=== PATIENT | male | born 1955 | race Caucasian/White ===

== ENCOUNTER 2018-05-02 14:39 | Inpatient (IN) | payer MEDICARE, MEDICAID ==
[~2018-05-02] VITALS: Ht 175.3 cm; Wt 65.8 kg
[2018-05-02 15:00] VITALS: BP 155/91
--- NOTE | 2018-05-02 15:00 | NUR ---
Admitted from [facility], for Cervical decompression, s/p fusion surgery. Awake, alert x4. With discomfort over back and bilateral shoulders. Cervical collar in place. Able to make needs known. On room air, no SOB or chest pains noted. Routine admission care done. Oriented patient of unit and equipment. Informed Dr. Blum of admission.
[2018-05-02] MEDS ORDERED: MAGNESIUM HYDROXIDE 30 ML LIQUID UDC PO PRN (16:00)
[2018-05-02] MEDS ORDERED: Z GUARD REMEDY PASTE 57 GM TUBE TOP PRN (16:00)
[2018-05-02] MEDS ORDERED: ACET-73 PO (16:05)
[2018-05-02] MEDS ORDERED: AMLO10TA4 PO (16:05)
[2018-05-02] MEDS ORDERED: VALS160T2 PO (16:05)
[2018-05-02] MEDS ORDERED: SULF500T3 PO (16:05)
[2018-05-02] MEDS ORDERED: TAMS0.4C34 PO (16:05)
[2018-05-02] MEDS ORDERED: CLON1PAT TD (16:05)
[2018-05-02] MEDS ORDERED: HYDR200T4 PO (16:05)
[2018-05-02] MEDS ORDERED: GABA-534 PO (16:05)
[2018-05-02] MEDS ORDERED: FLUT200B IH (16:05)
[2018-05-02] MEDS ORDERED: HYDR-3326 PO (16:05)
[2018-05-02] MEDS ORDERED: UMEC1BLS IH (16:05)
[2018-05-02] MEDS ORDERED: DIAZ5TAB4 PO (16:05)
[2018-05-02 16:08] VITALS: BP 153/88
[2018-05-02] MEDS ORDERED: ACETAMINOPHEN ES 500 MG TABLET PO PRN (18:30)
[2018-05-02] MEDS ORDERED: HOME MED MISCELLANEOUS XX SCH ×2 (18:30)
[2018-05-02] MEDS ORDERED: DIAZEPAM 5 MG TABLET PO PRN (18:30)
--- NOTE | 2018-05-02 18:40 | NUR ---
Medication reconciliation done by Dr Claus Serrato on 05/02/18 at 18:25
--- NOTE | 2018-05-02 18:40 | NUR ---
Home medications retained by Dr. laura Au being recalled. Endorsed to be followed up by pharmacy
[2018-05-02 20:29] VITALS: BP 161/95
[2018-05-02] MEDS: GABAPENTIN 300 MG CAPSULE PO SCH (20:31)
[2018-05-02] MEDS: HYDROCODONE/APAP 5-325MG TABLET PO PRN (20:34)
--- NOTE | 2018-05-02 22:02 | NUR ---
Pt. accucheck result @ this time is = 146 , pt. refused to receive his Regular S/S coverage since 146 is alright and good result already. No coverage given for Regular Insulin to the pt. Addendum: 05/03/18 at 0642 by LIBRA HERNANDEZ RN Pt. accucheck result @ this time is = 146 , pt. refused to receive his Regular S/S coverage since 146 is alright and good result already. No coverage given for Regular Insulin to the pt. THIS CHARTING IS ERROR. PLEASE DISREGARD THIS CHARTING.
[2018-05-03] MEDS: HYDROCODONE/APAP 5-325MG TABLET PO PRN ×5 (03:07→23:13)
[2018-05-03 05:00] VITALS: BP 146/84
[2018-05-03] MEDS: UMECLIDINIUM IH SCH (08:28)
[2018-05-03] MEDS: ARNUITY ELLIPTA 200 MCG INH SCH (08:28)
[2018-05-03] MEDS: VILANTEROL IH SCH (08:28)
[2018-05-03] MEDS: [UNRECOGNIZED DRUG - OTHER] IH SCH (08:28)
[2018-05-03] MEDS: TAMSULOSIN HCL 0.4 MG CAP.SR.24H PO SCH (08:28)
[2018-05-03] MEDS: LOSARTAN POTASSIUM 50 MG TABLET PO SCH (08:32)
[2018-05-03] MEDS: AMLODIPINE 10 MG TABLET PO SCH (08:32)
[2018-05-03] MEDS ORDERED: CLONIDINE-TTS 1 PATCH TD SCH (09:00)
[2018-05-03] MEDS ORDERED: VALSARTAN 160 MG TABLET PO SCH (09:00)
[2018-05-03] MEDS: HYDROXYCHLOROQUINE SULFATE 200 MG TABLET PO SCH ×2 (09:32→17:06)
[2018-05-03] MEDS: SULFASALAZINE 500 MG TABLET PO SCH ×2 (09:32→17:06)
[2018-05-03 15:49] VITALS: BP 142/86
--- NOTE | 2018-05-03 19:30 | NUR ---
PT ALERT AND ORIENTED IN BED. NO DISTRESS NOTED. COMPLIANT WITH NURSING CARE. WILL GIVE PAIN MEDICATION ORDERED. NECK BRACE IN PLACE. SAFETY MAINTAINED. CALL LIGHT WITHIN REACH. BED ALARM ON.
[2018-05-03 19:39] VITALS: BP 153/89
[2018-05-03] MEDS: GABAPENTIN 300 MG CAPSULE PO SCH (20:08)
[2018-05-04] MEDS: HYDROCODONE/APAP 5-325MG TABLET PO PRN ×3 (03:40→12:10)
[2018-05-04 05:30] VITALS: BP 144/84
[2018-05-04] MEDS: VILANTEROL IH SCH (06:04)
[2018-05-04] MEDS: [UNRECOGNIZED DRUG - OTHER] IH SCH (06:04)
[2018-05-04] MEDS: UMECLIDINIUM IH SCH (06:04)
[2018-05-04] MEDS: ARNUITY ELLIPTA 200 MCG INH SCH (06:04)
--- NOTE | 2018-05-04 06:43 | NUR ---
PT ALERT AND ORIENTED IN BED. NO DISTRESS NOTED. COMPLIANT WITH MEDICATIONS AND NURSING CARE. PAIN MEDICATION THROUGHOUT THE NIGHT NEEDED FOR PAIN. CERVICAL BRACE IN PLACE, DRESSINGS REINFORCED. SAFETY MAINTAINED. CALL LIGHT WITHIN REACH. BED ALARM ON.
[2018-05-04] MEDS: SULFASALAZINE 500 MG TABLET PO SCH ×2 (07:44→17:30)
[2018-05-04] MEDS: HYDROXYCHLOROQUINE SULFATE 200 MG TABLET PO SCH ×2 (07:44→17:31)
[2018-05-04] MEDS: LOSARTAN POTASSIUM 50 MG TABLET PO SCH (07:44)
[2018-05-04] MEDS: AMLODIPINE 10 MG TABLET PO SCH (07:45)
[2018-05-04] MEDS: OXYCODONE HCL 10 MG TAB.SR.12H PO SCH ×2 (07:46→21:45)
[2018-05-04] MEDS: TAMSULOSIN HCL 0.4 MG CAP.SR.24H PO SCH (07:46)
[2018-05-04 08:00] VITALS: BP 175/98
--- NOTE | 2018-05-04 08:00 | NUR ---
OT WORKING WITH PATIENT. HELPED SHOWER PATIENT. DRESSING CHANGED POST SHOWER. CLEANED WITH CHLORAPREP AND APPLIED NEW SURGICAL DRESSING. SURGICAL SITE KEELEY ARE CLEAN DRY INTACT NO DRAINAGE OR SWELLING NOTED.
--- NOTE | 2018-05-04 14:30 | NUR ---
endorsed patients to charge nurse
--- NOTE | 2018-05-04 14:40 | NUR ---
Received patient in bed, awake, verbally responsive, not in any form of acute distress. He denies any pain or discomfort at this time. Call light placed within reach.
[2018-05-04 16:01] VITALS: BP 170/99
[2018-05-04 20:14] VITALS: BP 147/90
--- NOTE | 2018-05-04 20:30 | NUR ---
Lying in bed wearing his cervical collar A/O x4 Surg Dressing C/D/I stables intact. denies of any distress siderails up call light within reach.
[2018-05-04] MEDS: GABAPENTIN 300 MG CAPSULE PO SCH (21:48)
[2018-05-05] MEDS: HYDROCODONE/APAP 5-325MG TABLET PO PRN ×2 (04:33→15:43)
--- NOTE | 2018-05-05 04:38 | NUR ---
C/o 7-10 Neck pain given 1 tab of norco.
[2018-05-05 05:00] VITALS: BP 137/90
[2018-05-05] MEDS: VILANTEROL IH SCH (06:40)
[2018-05-05] MEDS: UMECLIDINIUM IH SCH (06:40)
[2018-05-05] MEDS: ARNUITY ELLIPTA 200 MCG INH SCH (06:40)
[2018-05-05] MEDS: [UNRECOGNIZED DRUG - OTHER] IH SCH (06:40)
--- NOTE | 2018-05-05 06:57 | NUR ---
Lying in bed awake given inhalers denies of any distress c-collar remains on.
[2018-05-05] MEDS: SULFASALAZINE 500 MG TABLET PO SCH ×2 (09:55→17:21)
[2018-05-05] MEDS: AMLODIPINE 10 MG TABLET PO SCH (09:56)
[2018-05-05] MEDS: TAMSULOSIN HCL 0.4 MG CAP.SR.24H PO SCH (09:56)
[2018-05-05] MEDS: LOSARTAN POTASSIUM 50 MG TABLET PO SCH (09:56)
[2018-05-05] MEDS: OXYCODONE HCL 10 MG TAB.SR.12H PO SCH ×2 (09:57→20:12)
[2018-05-05] MEDS: HYDROXYCHLOROQUINE SULFATE 200 MG TABLET PO SCH ×2 (09:57→17:20)
--- NOTE | 2018-05-05 14:02 | NUR ---
INTERDISCIPLINARY TEAM CONFERENCE
[2018-05-05] MEDS: GABAPENTIN 300 MG CAPSULE PO SCH (20:12)
[2018-05-05 20:20] VITALS: BP 146/85
[2018-05-06 04:04] VITALS: BP 137/93
--- NOTE | 2018-05-06 05:58 | NUR ---
PT IN BED RESTING, CERVICAL COLLAR IN PLACE. IN NO ACUTE SIGNS OF DISTRESS. SAFETY MEASURES RENDERED.
[2018-05-06] MEDS: VILANTEROL IH SCH (06:37)
[2018-05-06] MEDS: [UNRECOGNIZED DRUG - OTHER] IH SCH (06:37)
[2018-05-06] MEDS: UMECLIDINIUM IH SCH (06:37)
[2018-05-06] MEDS: ARNUITY ELLIPTA 200 MCG INH SCH (06:38)
[2018-05-06] MEDS: SULFASALAZINE 500 MG TABLET PO SCH ×2 (08:24→17:02)
[2018-05-06] MEDS: HYDROXYCHLOROQUINE SULFATE 200 MG TABLET PO SCH ×2 (08:25→17:02)
[2018-05-06] MEDS: AMLODIPINE 10 MG TABLET PO SCH (08:25)
[2018-05-06] MEDS: OXYCODONE HCL 10 MG TAB.SR.12H PO SCH (08:25)
[2018-05-06] MEDS: TAMSULOSIN HCL 0.4 MG CAP.SR.24H PO SCH (08:27)
[2018-05-06] MEDS: LOSARTAN POTASSIUM 50 MG TABLET PO SCH (08:28)
[2018-05-06 15:50] VITALS: BP 148/87
[2018-05-06] MEDS: HYDROCODONE/APAP 5-325MG TABLET PO PRN (16:10)
== END 2018-05-06 17:45 | disposition home health service (06) | DRG 559 ==
PROVIDERS: ADMIT Physical Medicine & Rehabilitation Pain Medicine; ATTEND Physical Medicine & Rehabilitation Pain Medicine
DX: Z47.89 Encounter for other orthopedic aftercare (principal); E43 Unspecified severe protein-calorie malnutrition; M47.12 Other spondylosis with myelopathy, cervical region; M48.02 Spinal stenosis, cervical region; M54.12 Radiculopathy, cervical region; Z86.19 Personal history of other infectious and parasitic diseases; D64.9 Anemia, unspecified; G89.29 Other chronic pain; J44.9 Chronic obstructive pulmonary disease, unspecified; M06.9 Rheumatoid arthritis, unspecified; N40.0 Benign prostatic hyperplasia without lower urinary tract symptoms; R29.6 Repeated falls; R20.0 Anesthesia of skin; F12.90 Cannabis use, unspecified, uncomplicated; Z87.891 Personal history of nicotine dependence; F41.9 Anxiety disorder, unspecified; R26.9 Unspecified abnormalities of gait and mobility
CPT/HCPCS: 92523; 92526; 92610; 97110; 97112; 97116; 97165; 97530; 97535; A9150

== ENCOUNTER 2024-01-06 10:17 | Inpatient (IN) | payer MEDICARE, OTHER ==
[~2024-01-06] VITALS: Ht 185.4 cm; Wt 79.4 kg
[~2024-01-06 10:17] MED LIST: ACET-73 PO; AMLO10TA4 PO; CLON1PAT TD; DIAZ5TAB4 PO; FLUT200B IH; GABA-534 PO; HYDR-3326 PO; HYDR200T4 PO; SULF500T3 PO; TAMS0.4C34 PO; UMEC1BLS IH; VALS160T2 PO
[2024-01-06] MEDS ORDERED: HYDROMORPHONE 2 MG/1 ML DISP.SYRIN ONE ×3 (10:40→13:48)
[2024-01-06] MEDS ORDERED: ONDANSETRON 4 MG/2 ML VIAL ONE ×2 (10:40→11:18)
[2024-01-06] MEDS: ONDANSETRON 4 MG/2 ML VIAL IV ONE ×2 (10:46→11:26)
[2024-01-06] MEDS: HYDROMORPHONE 1 MG/1 ML DISP.SYRIN IV ONE ×2 (10:46→11:26)
[2024-01-06] MEDS ORDERED: ETAN50SY SQ (11:17)
[2024-01-06] MEDS ORDERED: LOSA1TAB39 PO (11:17)
[2024-01-06] MEDS ORDERED: ATOR40TA PO (11:17)
[2024-01-06] MEDS ORDERED: KETOROLAC TROMETHAMINE 15 MG INJ ONE (11:18)
[2024-01-06 11:19] LABS: BASOPHILS # (AUTO) 0.1 K/UL (0.0-0.2); EOSINOPHILS # (AUTO) 0.3 K/uL (0.0-0.7); EOSINOPHILS % (AUTO) 4.9 % (0.0-7.0); HEMATOCRIT 39.7 % (36.7-47.1); HEMOGLOBIN 13.6 g/dL (12.5-16.3); LYMPHOCYTES # (AUTO) 1.8 K/uL (0.8-4.8); LYMPHOCYTES % (AUTO) 26.2 % (20.5-51.5); MEAN CORPUSCULAR HGB CONC 34 g/dL (32.5-36.3); MEAN CORPUSCULAR VOLUME 84.4 fL (73.0-96.2); MONOCYTES # (AUTO) 0.8 K/uL (0.1-1.30); MONOCYTES % (AUTO) 11.3 % (0.0-11.0); NEUTROPHILS % (AUTO) 56.6 % (38.5-71.5); PLATELET COUNT (AUTO) 226 K/uL (152-348)
[2024-01-06 11:27] LABS: DIFFERENTIAL COMMENT 1
[2024-01-06] MEDS: KETOROLAC TROMETHAMINE 15 MG INJ IVP ONE (11:27)
[2024-01-06 11:29] LABS: CALCIUM 9.1 mg/dL (8.5-10.1); CREATININE 1.4 mg/dL (0.6-1.3)
[2024-01-06] MEDS: HYDROMORPHONE 1 MG/1 ML DISP.SYRIN IV PRN ×3 (13:55→20:47)
[2024-01-06] MEDS ORDERED: DIAZEPAM 5 MG TABLET PO PRN (14:45)
[2024-01-06] MEDS ORDERED: CLONIDINE-TTS 1 PATCH TD SCH (14:45)
[2024-01-06] MEDS ORDERED: MAGNESIUM HYDROXIDE 30 ML LIQUID UDC PO PRN (15:00)
[2024-01-06] MEDS ORDERED: ACETAMINOPHEN 325 MG TABLET PO PRN (15:00)
[2024-01-06] MEDS ORDERED: REMEDY ESSENTIAL ZINC PASTE 113 GM TP PRN (15:00)
[2024-01-06] MEDS ORDERED: HYDROXYCHLOROQUINE SULFATE 200 MG TABLET PO SCH (17:00)
[2024-01-06] MEDS ORDERED: SULFASALAZINE 1000 MG PO SCH (17:00)
[2024-01-06] MEDS: ONDANSETRON 4 MG/2 ML VIAL IV PRN (17:37)
[2024-01-06] MEDS: DEXAMETHASONE SOD PHOSPHATE 10 MG INJ IV SCH (20:27)
[2024-01-06] MEDS: DOCUSATE SODIUM 250 MG CAPSULE PO SCH (20:27)
[2024-01-06 20:31] VITALS: BP 139/70; TEMP 97.4; O2SAT 92
[2024-01-06] MEDS: ENOXAPARIN SODIUM 40 MG/0.4 ML DISP.SYRIN SQ SCH (21:22)
[2024-01-06] MEDS: AMLODIPINE 10 MG TABLET PO SCH (22:35)
[2024-01-06] MEDS: MONTELUKAST SODIUM 10 MG TABLET PO SCH (22:35)
[2024-01-07] MEDS: diphenhydrAMINE 25 MG CAP PO PRN (01:48)
[2024-01-07 02:20] VITALS: O2SAT 98
[2024-01-07 05:26] VITALS: BP 146/8; TEMP 98.5; O2SAT 92
[2024-01-07 06:32] LABS: BASOPHILS % (AUTO) 0.2 % (0.0-2.0); EOSINOPHILS % (AUTO) 0.1 % (0.0-7.0); HEMATOCRIT 35.2 % (36.7-47.1); HEMOGLOBIN 12.3 g/dL (12.5-16.3); LYMPHOCYTES # (AUTO) 0.5 K/uL (0.8-4.8); LYMPHOCYTES % (AUTO) 7.3 % (20.5-51.5); MEAN CORPUSCULAR HEMOGLOBIN 29.3 uug (23.8-33.4); MEAN CORPUSCULAR HGB CONC 35 g/dL (32.5-36.3); MEAN CORPUSCULAR VOLUME 83.8 fL (73.0-96.2); MONOCYTES # (AUTO) 0.2 K/uL (0.1-1.30); MONOCYTES % (AUTO) 2.9 % (0.0-11.0); NEUTROPHILS # (AUTO) 6.3 K/uL (1.8-8.9); NEUTROPHILS % (AUTO) 89.5 % (38.5-71.5); PLATELET COUNT (AUTO) 210 K/uL (152-348); RED BLOOD CELL COUNT(AUTO) 4.21 MIL/uL (4.06-5.63); RED CELL DISTRIBUTION WIDTH 14.6 % (12.1-16.2); WHITE BLOOD COUNT (AUTO) 7.1 K/uL (3.6-10.2)
[2024-01-07 06:43] LABS: DIFFERENTIAL COMMENT 1
[2024-01-07 06:46] LABS: CALCIUM 8.9 mg/dL (8.5-10.1); CREATININE 1.3 mg/dL (0.6-1.3); MAGNESIUM 1.8 mg/dL (1.8-2.4); PHOSPHOROUS 3.1 mg/dL (2.5-4.9); POTASSIUM 4.3 mmol/L (3.5-5.1)
[2024-01-07 07:25] VITALS: O2SAT 94
[2024-01-07] MEDS: HYDROCHLOROTHIAZIDE 25 MG TABLET PO SCH (08:53)
[2024-01-07] MEDS: LOSARTAN POTASSIUM 50 MG TABLET PO SCH (08:54)
[2024-01-07] MEDS ORDERED: TAMSULOSIN HCL 0.4 MG CAP.SR.24H PO SCH (09:00)
[2024-01-07] MEDS ORDERED: VALSARTAN 160 MG TABLET PO SCH (09:00)
[2024-01-07] MEDS ORDERED: AMLODIPINE 10 MG TABLET PO SCH (09:00)
[2024-01-07] MEDS ORDERED: SEMA0.25 SQ (11:09)
[2024-01-07] MEDS ORDERED: MONT10TA33 PO (11:09)
[2024-01-07] MEDS ORDERED: IPRA4AER IH (11:09)
[2024-01-07] MEDS ORDERED: ASPI81TA31 PO (11:09)
[2024-01-07] MEDS ORDERED: FLUT1BLS6 IH (11:09)
[2024-01-07] MEDS ORDERED: MULT-1201 PO (11:09)
[2024-01-07 11:49] VITALS: BP 150/71; TEMP 98.5; O2SAT 94
[2024-01-07] MEDS ORDERED: METH4TAB3 PO (12:26)
[2024-01-07] MEDS ORDERED: HYDR-3972 PO (12:26)
[2024-01-07 15:56] VITALS: BP 140/68; TEMP 98.4; O2SAT 94
[2024-01-07 20:00] VITALS: BP 144/84; TEMP 98; O2SAT 95
[2024-01-07] MEDS: ATORVASTATIN 40 MG TABLET PO SCH (20:12)
[2024-01-08 04:15] VITALS: O2SAT 94
[2024-01-08 06:02] VITALS: BP 118/73; TEMP 97.8; O2SAT 94
[2024-01-08 06:41] LABS: BASOPHILS % (AUTO) 0.2 % (0.0-2.0); EOSINOPHILS % (AUTO) 0.1 % (0.0-7.0); HEMATOCRIT 34.2 % (36.7-47.1); HEMOGLOBIN 11.9 g/dL (12.5-16.3); LYMPHOCYTES # (AUTO) 1.1 K/uL (0.8-4.8); LYMPHOCYTES % (AUTO) 8.4 % (20.5-51.5); MEAN CORPUSCULAR HEMOGLOBIN 29.1 uug (23.8-33.4); MEAN CORPUSCULAR HGB CONC 35 g/dL (32.5-36.3); MEAN CORPUSCULAR VOLUME 83.6 fL (73.0-96.2); MONOCYTES # (AUTO) 1.6 K/uL (0.1-1.30); MONOCYTES % (AUTO) 12.3 % (0.0-11.0); NEUTROPHILS # (AUTO) 10.6 K/uL (1.8-8.9); PLATELET COUNT (AUTO) 223 K/uL (152-348); RED BLOOD CELL COUNT(AUTO) 4.09 MIL/uL (4.06-5.63); RED CELL DISTRIBUTION WIDTH 14.7 % (12.1-16.2); WHITE BLOOD COUNT (AUTO) 13.4 K/uL (3.6-10.2)
[2024-01-08 07:08] LABS: ALBUMIN 3.1 g/dL (3.4-5.0); CALCIUM 8.7 mg/dL (8.5-10.1); CREATININE 1.1 mg/dL (0.6-1.3); MAGNESIUM 1.9 mg/dL (1.8-2.4); PHOSPHOROUS 2.6 mg/dL (2.5-4.9); POTASSIUM 4.1 mmol/L (3.5-5.1)
[2024-01-08 07:24] LABS: DIFFERENTIAL COMMENT 1
[2024-01-08 08:43] VITALS: BP 118/73
[2024-01-08 13:04] LABS: *BILIRUBIN,URIN NEGATIVE (NEGATIVE); *BLOOD, URINE NEGATIVE (NEGATIVE); *CLARITY,URINE CLEAR (CLEAR); *COLOR,URINE YELLOW (YELLOW); *KETONES,URINE NEGATIVE (NEGATIVE); *PROTEIN,URINE NEGATIVE (NEGATIVE); *UROBILINOGEN,URINE 0.2 E.U./dl (NORMAL); LEUKOCYTE ESTERASE ,URINE NEGATIVE (NEGATIVE); NITRITE, URINE NEGATIVE (NEGATIVE); PH,URINE 5.5 (5.0-8.0); UGLUCOSE NEGATIVE (NEGATIVE)
[2024-01-08 13:08] LABS: *CREATININE,URINE 83.2 mg/dL (30-125); *URINE TOTAL PROTEIN RANDOM 10.6 mg/dL (<150/24HR)
[2024-01-09 08:10] LABS: PTH, INTACT 40 pg/mL (15-65)
[2024-01-09 15:07] LABS: A/G RATIO 1.2 (0.7-1.7); ALBUMIN 3.1 g/dL (2.9-4.4); ALPHA-1-GLOBULIN 0.3 g/dL (0.0-0.4); ALPHA-2-GLOBULIN 0.7 g/dL (0.4-1.0); BETA GLOBULIN 0.9 g/dL (0.7-1.3); GAMMA GLOBULIN 0.8 g/dL (0.4-1.8); GLOBULIN, TOTAL 2.6 g/dL (2.2-3.9); M-SPIKE Not Observed g/dL (Not Observed)
== END 2024-01-08 10:55 | disposition home health service (06) | DRG 948 ==
LOC: ER 10:17 → MEDSURG3 15:05
PROVIDERS: ADMIT Internal Medicine; ATTEND Nurse Practitioner Acute Care
DX: G89.18 Other acute postprocedural pain (principal); N17.9 Acute kidney failure, unspecified; J44.9 Chronic obstructive pulmonary disease, unspecified; M51.36 Other intervertebral disc degeneration, lumbar region; M48.061 Spinal stenosis, lumbar region without neurogenic claudication; E78.5 Hyperlipidemia, unspecified; G89.29 Other chronic pain; I10 Essential (primary) hypertension; M06.9 Rheumatoid arthritis, unspecified; M41.86 Other forms of scoliosis, lumbar region; N40.0 Benign prostatic hyperplasia without lower urinary tract symptoms; N18.9 Chronic kidney disease, unspecified; Z79.899 Other long term (current) drug therapy; M54.9 Dorsalgia, unspecified
CPT/HCPCS: 36415; 72131; 76770; 83735; 83970; 84100; 84155; 84165; 84300; 85025; 94640; G0378; J1100; J1170; J1650; J1885; J2405; Q0163